=== PATIENT | female | born 1955 | race Caucasian/White ===

== ENCOUNTER → 2023-01-06 08:47 | Outpatient (CLI) | payer MEDICARE, SELFPAY ==
--- NOTE | ~2023-01-06 | MR_ITS ---
EXAMINATION: MRA brain wo con DATE: 01/06/2023 09:33 INDICATION: Pulsatile tinnitus, bilateral. TECHNIQUE: Magnetic resonance angiography (MRA) of the brain was performed without intravenous contra st with T1-weighted SPGR by the 3D [id number] technique. Maximum intensity projection 3D-reconstr uctions were obtained. COMPARISON: None. FINDINGS: Right vertebral artery is dominant. There is no significant stenosis of basilar artery or the posteri or cerebral arteries. There is no significant stenosis of the intracranial internal carotid arteries or anterior or middle cerebral arteries. Anterior communicating artery is normal. Posterior communica ting arteries are not identified. There is no aneurysm. IMPRESSION: 1. Normal MRA. Reviewed, dictated and finalized at location A. IMPRESSION: 1. Normal MRA.
== END ==
PROVIDERS: PCP Family Medicine; Visit Provider Nurse Practitioner Family
DX: H93.A3 Pulsatile tinnitus, bilateral (principal); E11.42 Type 2 diabetes mellitus with diabetic polyneuropathy; Z79.4 Long term (current) use of insulin
CPT/HCPCS: 70544